=== PATIENT | male | born 1945 | race Asian ===

== ENCOUNTER 2020-02-29 17:53 | Inpatient (IN) | payer MEDICARE ==
[~2020-02-29] VITALS: Ht 170.2 cm; Wt 78.7 kg
--- NOTE | 2020-02-29 18:10 | NUR ---
Bib by sheron from urgent care for hypotension (manual b/p of 70, and hypoxemia (room air of 67%). Presented for rlq/right flank pain at 06/15. Also with diarrhea and no appetite x 3 days On arrival 86, 107/67, poc 98% on 4l (given 2l by EMS)
[2020-02-29] MEDS ORDERED: HYDROmorphone 1 MG/ML, 1ML INJ ONE (18:13)
[2020-02-29] MEDS ORDERED: ONDANSETRON 2MG/ML, 2ML ONE (18:13)
[2020-02-29] MEDS ORDERED: ONDANSETRON 2MG/ML, 2ML IVPush ONE (18:30)
[2020-02-29] MEDS ORDERED: SODIUM CHLORIDE 0.9% 1,000ML IVBOLUS ONE ×2 (18:30→19:30)
[2020-02-29] MEDS ORDERED: HYDROmorphone 2 MG/ML, 1ML IVPush PRN (18:30)
[2020-02-29] MEDS ORDERED: SODIUM CHLORIDE FLUSH 10ML SYR IVF ONE (18:30)
--- NOTE | 2020-02-29 18:30 | NUR ---
PATIENT RESTING COMFORTABLY. HOWEVER REPEAT B/P PRESSURIZED PATIENT SAT BOLT UPRIGHT/SCREAMING IN IN PAIN REPORTING MIDDLE MID BACK WITH SHARP PAIN. RUE B/P ROUGHLY 20 POINTS LOWER THAN LUE. PROVIDER TO BEDSIDE. PROVIDER PERFORMED BEDSIDE FAST. TO GO TO CT FOR AAA EVAL IMMEDIATELY
[2020-02-29] MEDS ORDERED: LOSA50TA14 PO (18:32)
[2020-02-29 18:58] LABS: BASOPHILS % (AUTO) 0 % (0-1); EOSINOPHILS % (AUTO) 0 % (1-7); LYMPHOCYTES # (AUTO) 0.87 x10^3/uL (1-3.4); LYMPHOCYTES % (AUTO) 9 % (22-44); MD NO; MEAN CORPUSCULAR HEMOGLOBIN 30.2 pg (27.5-34.5); MEAN CORPUSCULAR HGB CONC 32.8 g/dL (33.2-36.2); MEAN PLATELET VOLUME 7.6 fL (7.4-10.4); MONOCYTES # (AUTO) 0.34 x10^3/uL (0.2-0.8); MONOCYTES % (AUTO) 4 % (2-9); NEUTROPHILS # (AUTO) 8.02 x10^3/uL (1.8-6.8); NEUTROPHILS % (AUTO) 87 % (42-75); PLATELET COUNT 291 x10^3/uL (130-400); RED BLOOD COUNT 2.67 x10^6/uL (4.38-5.82); RED CELL DISTRIBUTION WIDTH 18.4 % (9.4-14.8)
[2020-02-29] MEDS ORDERED: NOREPINEPHRINE 8 MG in SODIUM CHLORIDE 0.9% 242 ML IV PRN (19:00)
--- NOTE | 2020-02-29 19:07 | NUR ---
GEN SURG PAGED.
[2020-02-29] MEDS ORDERED: OMNIPAQUE 350 MG/ML, 100ML BOTTLE ONE (19:08)
--- NOTE | 2020-02-29 19:10 | NUR ---
RECEIVED REPORT FROM MEÑO SERRANO. ASSUMING CARE AT THIS TIME. PT RESTING COMFORTABLY ON GURNEY. 3RD LITER NS INFUSING. MEÑO SERRANO ESTABLISHING SECOND IV AT THIS TIME. FAMILY AT BEDSIDE.
[2020-02-29 19:11] LABS: ALANINE AMINOTRANSFERASE 207 U/L (12-78); ALBUMIN 2.1 g/dL (3.4-5.0); ANION GAP 9 mmol/L (5-15); CALCIUM 7.7 mg/dL (8.5-10.1); CHLORIDE 111 mmol/L (98-107)
[2020-02-29 19:13] LABS: ALKALINE PHOSPHATASE 111 U/L (45-117); BILIRUBIN,TOTAL 0.6 mg/dL (0.2-1.0); TOTAL PROTEIN 6.1 g/dL (6.4-8.2)
--- NOTE | 2020-02-29 19:20 | NUR ---
Second piv placed to right arm Report to Sarai SERRANO
--- NOTE | 2020-02-29 19:59 | NUR ---
MD AT BEDSIDE TO UPDATE PT AND FAMILY ON POC AND TEST RESULTS.
--- NOTE | 2020-02-29 20:12 | NUR ---
PT PROVIDED URINE SAMPLE. UA COLLECTED AND SENT TO LAB.
[2020-02-29] MEDS ORDERED: MORPHINE SULFATE 4 MG/ML, 1ML ONE (20:14)
--- NOTE | 2020-02-29 20:19 | NUR ---
PT C/O 04/15 PAIN. VERBAL ORDER RECEIVED FOR MORPHINE 2MG IV ONCE.
[2020-02-29] MEDS ORDERED: MORPHINE SULFATE 4 MG/ML, 1ML IVPush PRN (20:30)
[2020-02-29 20:41] LABS: MICROSCOPIC INDICATED
[2020-02-29] MEDS ORDERED: CEFTRIAXONE PMX 1GM/50ML 50 ML ONE (21:17)
[2020-02-29] MEDS ORDERED: CEFTRIAXONE PMX 1GM/50ML 50 ML IVPB ONE (21:30)
--- NOTE | 2020-02-29 21:51 | NUR ---
SECOND SET BLOOD CULTURE COLLECTED PRIOR TO ABX ADMIN.
--- NOTE | 2020-02-29 21:52 | NUR ---
REPORT GIVEN TO DELTA SERRANO
[2020-02-29] MEDS ORDERED: BISACODYL 10 MG SUPP PR PRN (22:00)
[2020-02-29] MEDS ORDERED: ACETAMINOPHEN 325 MG TABLET PO PRN (22:00)
[2020-02-29] MEDS ORDERED: ONDANSETRON 2MG/ML, 2ML IVPush PRN (22:00)
[2020-02-29] MEDS: CEFTRIAXONE PMX 1GM/50ML 50 ML IV SCH (22:00)
[2020-02-29 22:41] VITALS: BP 94/59
[2020-02-29] MEDS: LACTATED RINGERS 1,000 ML IV SCH (22:41)
[2020-03-01] VITALS (11 sets, daily range): BP systolic 83–119; BP diastolic 44–75
[2020-03-01] MEDS ORDERED: TAMS-11 PO (00:44)
[2020-03-01] MEDS: LACTATED RINGERS 1,000 ML IV SCH (05:51)
[2020-03-01 06:18] LABS: MEAN CORPUSCULAR HEMOGLOBIN 30.3 pg (27.5-34.5); MEAN CORPUSCULAR HGB CONC 32.3 g/dL (33.2-36.2); MEAN CORPUSCULAR VOLUME 93.6 fL (81-97); MEAN PLATELET VOLUME 8.1 fL (7.4-10.4); PLATELET COUNT 244 x10^3/uL (130-400); RED BLOOD COUNT 2.39 x10^6/uL (4.38-5.82); RED CELL DISTRIBUTION WIDTH 19.3 % (9.4-14.8)
[2020-03-01] MEDS ORDERED: SODIUM CHLORIDE 0.9% 1,000ML IVBOLUS ONE ×2 (07:00→12:30)
[2020-03-01 07:26] LABS: BASOPHILS # (AUTO) 0.02 x10^3/uL (0-0.1); BASOPHILS % (AUTO) 0 % (0-1); EOSINOPHILS % (AUTO) 0 % (1-7); LYMPHOCYTES # (AUTO) 1.09 x10^3/uL (1-3.4); LYMPHOCYTES % (AUTO) 11 % (22-44); MD SCAN; MONOCYTES # (AUTO) 0.65 x10^3/uL (0.2-0.8); MONOCYTES % (AUTO) 7 % (2-9); NEUTROPHILS # (AUTO) 7.81 x10^3/uL (1.8-6.8); NEUTROPHILS % (AUTO) 82 % (42-75)
[2020-03-01 08:25] LABS: ALANINE AMINOTRANSFERASE 328 U/L (12-78); ALBUMIN 2.2 g/dL (3.4-5.0); ANION GAP 7 mmol/L (5-15); CALCIUM 7.9 mg/dL (8.5-10.1); CHLORIDE 112 mmol/L (98-107); CREATININE 2.07 mg/dL (0.7-1.3)
[2020-03-01 08:28] LABS: ALKALINE PHOSPHATASE 118 U/L (45-117); BILIRUBIN,TOTAL 0.4 mg/dL (0.2-1.0); TOTAL PROTEIN 6.4 g/dL (6.4-8.2)
[2020-03-01] MEDS ORDERED: SODIUM CHLORIDE 0.9%, 500ML IVBOLUS ONE (12:30)
[2020-03-01] MEDS: morphine SULFATE 10 MG/ML, 1ML IVPush PRN (15:53)
[2020-03-01] MEDS: CEFTRIAXONE PMX 1GM/50ML 50 ML IV SCH (22:02)
[2020-03-02 01:21] VITALS: BP 123/72
[2020-03-02 06:16] VITALS: BP 143/80
[2020-03-02] MEDS ORDERED: TAMSULOSIN 0.4 MG CAP.ER.24H ONE (07:25)
[2020-03-02] MEDS: TAMSULOSIN 0.4 MG CAP.ER.24H PO SCH (07:28)
[2020-03-02 08:24] VITALS: BP 122/73
[2020-03-02 13:00] VITALS: BP_SYST 124; BP_SYST 144; BP_SYST 160; BP_DIAS 59; BP_DIAS 78; BP_DIAS 82
[2020-03-02] MEDS: morphine SULFATE 10 MG/ML, 1ML IVPush PRN ×2 (18:25→22:20)
[2020-03-02 19:30] VITALS: BP 137/69
[2020-03-02 19:30] LABS: CLOSTRIDIUM DIFFICILE ANTIGEN NEGATIVE; CLOSTRIDIUM DIFFICILE TOXIN NEGATIVE (Negative)
[2020-03-02] MEDS: CEFTRIAXONE PMX 1GM/50ML 50 ML IV SCH (22:20)
[2020-03-03] VITALS (13 sets, daily range): BP systolic 120–152; BP diastolic 75–88
[2020-03-03] MEDS: morphine SULFATE 10 MG/ML, 1ML IVPush PRN ×5 (01:19→21:07)
[2020-03-03] MEDS: TAMSULOSIN 0.4 MG CAP.ER.24H PO SCH (07:43)
[2020-03-03] MEDS ORDERED: SODIUM CHLORIDE 0.9% 1,000 ML IV SCH (09:00)
[2020-03-03 09:10] LABS: ALBUMIN 2.6 g/dL (3.4-5.0); ANION GAP 8 mmol/L (5-15); CALCIUM 8.6 mg/dL (8.5-10.1); CHLORIDE 114 mmol/L (98-107)
[2020-03-03 09:21] LABS: MEAN CORPUSCULAR HEMOGLOBIN 30.5 pg (27.5-34.5); MEAN CORPUSCULAR HGB CONC 31.9 g/dL (33.2-36.2); MEAN CORPUSCULAR VOLUME 95.7 fL (81-97); MEAN PLATELET VOLUME 7.3 fL (7.4-10.4); PLATELET COUNT 288 x10^3/uL (130-400); RED CELL DISTRIBUTION WIDTH 19.4 % (9.4-14.8)
[2020-03-03 09:23] LABS: BASOPHILS # (AUTO) 0.02 x10^3/uL (0-0.1); BASOPHILS % (AUTO) 0 % (0-1); EOSINOPHILS # (AUTO) 0.01 x10^3/uL (0-0.4); EOSINOPHILS % (AUTO) 0 % (1-7); LYMPHOCYTES # (AUTO) 0.82 x10^3/uL (1-3.4); LYMPHOCYTES % (AUTO) 6 % (22-44); MD MORPH REVIEW ONLY; MONOCYTES # (AUTO) 1.25 x10^3/uL (0.2-0.8); MONOCYTES % (AUTO) 9 % (2-9); NEUTROPHILS % (AUTO) 85 % (42-75)
[2020-03-03 09:25] LABS: ALANINE AMINOTRANSFERASE 1355 U/L (12-78); ALKALINE PHOSPHATASE 260 U/L (45-117); BILIRUBIN,TOTAL 0.9 mg/dL (0.2-1.0); CREATININE 2.13 mg/dL (0.7-1.3); TOTAL PROTEIN 7.5 g/dL (6.4-8.2)
[2020-03-03 09:41] LABS: <PLATELET ESTIMATE> ADEQUATE; <PLT MORPHOLOGY> NORMAL PLT MORPH; ANISOCYTOSIS 1+; HYPOCHROMIA 1+; POLYCHROMASIA 1+; TARGET CELLS 1+
[2020-03-03 10:24] LABS: INTERNATIONAL NORMALIZED RATIO 1.1 (0.93-1.1); PROTHROMBIN TIME 11.7 Seconds (9.6-11.5)
[2020-03-03] MEDS ORDERED: SODIUM CHLORIDE 0.9% 1,800 ML IV SCH (10:30)
[2020-03-03] MEDS: VANCOMYCIN PER PHARMACY MC SCH (10:30)
[2020-03-03] MEDS: PHENAZOPYRIDINE 200 MG TABLET PO SCH ×3 (10:51→21:06)
[2020-03-03] MEDS ORDERED: PHARMACOKINETIC MONITORING MC PRN (11:00)
[2020-03-03] MEDS ORDERED: PHARMACOKINETIC CONSULTATION MC ONE (11:00)
[2020-03-03] MEDS: VANCOMYCIN 1,600 MG in SODIUM CHLORIDE 0.9% 250 ML IV SCH (11:04)
[2020-03-03] MEDS ORDERED: FUROSEMIDE 40 MG/4 ML ONE (13:12)
[2020-03-03] MEDS ORDERED: FUROSEMIDE 40 MG/4 ML IV ONE (13:30)
[2020-03-03] MEDS: OXYcodone IR 5MG TABLET PO PRN ×2 (15:41→19:42)
[2020-03-03 16:46] LABS: OCCULT BLOOD NEGATIVE (NEGATIVE)
[2020-03-03] MEDS ORDERED: MORPHINE SULFATE 4 MG/ML, 1ML ONE (21:01)
[2020-03-04] MEDS: OXYcodone IR 5MG TABLET PO PRN ×2 (00:58→09:26)
[2020-03-04 02:45] VITALS: BP 125/78
[2020-03-04] MEDS ORDERED: MORPHINE SULFATE 4 MG/ML, 1ML ONE (02:48)
[2020-03-04] MEDS: morphine SULFATE 10 MG/ML, 1ML IVPush PRN (02:52)
[2020-03-04 06:45] VITALS: BP 130/77
[2020-03-04] MEDS ORDERED: FUROSEMIDE 40 MG/4 ML IV ONE (09:00)
[2020-03-04] MEDS: VANCOMYCIN PER PHARMACY MC SCH (09:00)
[2020-03-04] MEDS: IRON SUCROSE COMPLEX 100MG/5ML IV SCH (09:26)
[2020-03-04] MEDS: PHENAZOPYRIDINE 200 MG TABLET PO SCH ×3 (09:26→21:43)
[2020-03-04] MEDS: TAMSULOSIN 0.4 MG CAP.ER.24H PO SCH (09:26)
[2020-03-04 09:48] LABS: MEAN CORPUSCULAR HEMOGLOBIN 30.7 pg (27.5-34.5); MEAN CORPUSCULAR HGB CONC 33.3 g/dL (33.2-36.2); MEAN CORPUSCULAR VOLUME 92.1 fL (81-97); MEAN PLATELET VOLUME 7.8 fL (7.4-10.4); PLATELET COUNT 287 x10^3/uL (130-400); RED BLOOD COUNT 3.07 x10^6/uL (4.38-5.82)
[2020-03-04 09:55] LABS: ALBUMIN 2.6 g/dL (3.4-5.0); ANION GAP 9 mmol/L (5-15); CALCIUM 8.3 mg/dL (8.5-10.1); CHLORIDE 110 mmol/L (98-107); CREATININE 2.18 mg/dL (0.7-1.3)
[2020-03-04 10:09] LABS: BASOPHILS % (AUTO) 0 % (0-1); EOSINOPHILS # (AUTO) 0.24 x10^3/uL (0-0.4); EOSINOPHILS % (AUTO) 2 % (1-7); LYMPHOCYTES # (AUTO) 0.68 x10^3/uL (1-3.4); LYMPHOCYTES % (AUTO) 6 % (22-44); MD SCAN; MONOCYTES # (AUTO) 0.98 x10^3/uL (0.2-0.8); MONOCYTES % (AUTO) 8 % (2-9); NEUTROPHILS # (AUTO) 9.99 x10^3/uL (1.8-6.8); NEUTROPHILS % (AUTO) 84 % (42-75)
[2020-03-04 10:11] LABS: ALANINE AMINOTRANSFERASE 1063 U/L (12-78); ALKALINE PHOSPHATASE 232 U/L (45-117); BILIRUBIN,TOTAL 1.2 mg/dL (0.2-1.0); TOTAL PROTEIN 7.7 g/dL (6.4-8.2)
[2020-03-04] MEDS: VANCOMYCIN 1,600 MG in SODIUM CHLORIDE 0.9% 250 ML IV SCH (11:32)
[2020-03-04 13:19] VITALS: BP 131/80
[2020-03-04 18:56] VITALS: BP 144/82
[2020-03-05 02:21] VITALS: BP 131/73
[2020-03-05] MEDS: morphine SULFATE 10 MG/ML, 1ML IVPush PRN ×2 (02:58→21:57)
[2020-03-05] MEDS: OXYcodone IR 5MG TABLET PO PRN ×3 (04:41→19:47)
[2020-03-05 06:10] LABS: MEAN CORPUSCULAR HEMOGLOBIN 30.2 pg (27.5-34.5); MEAN CORPUSCULAR HGB CONC 32.6 g/dL (33.2-36.2); MEAN CORPUSCULAR VOLUME 92.5 fL (81-97); MEAN PLATELET VOLUME 7.4 fL (7.4-10.4); PLATELET COUNT 267 x10^3/uL (130-400); RED BLOOD COUNT 3.07 x10^6/uL (4.38-5.82); RED CELL DISTRIBUTION WIDTH 19.2 % (9.4-14.8)
[2020-03-05 06:21] LABS: ALANINE AMINOTRANSFERASE 784 U/L (12-78); ALBUMIN 2.2 g/dL (3.4-5.0); ANION GAP 6 mmol/L (5-15); CALCIUM 8.5 mg/dL (8.5-10.1); CHLORIDE 112 mmol/L (98-107)
[2020-03-05 06:23] VITALS: BP 128/76
[2020-03-05 06:29] LABS: ALKALINE PHOSPHATASE 202 U/L (45-117); CREATININE 1.76 mg/dL (0.7-1.3); TOTAL PROTEIN 7.1 g/dL (6.4-8.2)
[2020-03-05 06:42] LABS: BASOPHILS # (AUTO) 0.01 x10^3/uL (0-0.1); BASOPHILS % (AUTO) 0 % (0-1); EOSINOPHILS # (AUTO) 0.25 x10^3/uL (0-0.4); EOSINOPHILS % (AUTO) 2 % (1-7); LYMPHOCYTES # (AUTO) 0.58 x10^3/uL (1-3.4); LYMPHOCYTES % (AUTO) 5 % (22-44); MD SCAN; MONOCYTES % (AUTO) 5 % (2-9); NEUTROPHILS # (AUTO) 9.86 x10^3/uL (1.8-6.8); NEUTROPHILS % (AUTO) 88 % (42-75)
[2020-03-05] MEDS: VANCOMYCIN PER PHARMACY MC SCH (09:00)
[2020-03-05] MEDS: TAMSULOSIN 0.4 MG CAP.ER.24H PO SCH (09:30)
[2020-03-05] MEDS: IRON SUCROSE COMPLEX 100MG/5ML IV SCH (09:30)
[2020-03-05 09:49] LABS: CREATININE 1.72 mg/dL (0.7-1.3)
[2020-03-05] MEDS: VANCOMYCIN 1,600 MG in SODIUM CHLORIDE 0.9% 250 ML IV SCH ×2 (12:32→18:30)
[2020-03-05 13:03] VITALS: BP 135/79
[2020-03-05 18:50] VITALS: BP 130/70
[2020-03-05] MEDS ORDERED: MORPHINE SULFATE 4 MG/ML, 1ML ONE (21:48)
[2020-03-06 00:35] VITALS: BP 150/82
[2020-03-06] MEDS ORDERED: MORPHINE SULFATE 4 MG/ML, 1ML ONE (01:24)
[2020-03-06] MEDS: morphine SULFATE 10 MG/ML, 1ML IVPush PRN ×6 (01:28→23:56)
[2020-03-06] MEDS: OXYcodone IR 5MG TABLET PO PRN ×3 (03:04→18:44)
[2020-03-06] MEDS: VANCOMYCIN PER PHARMACY MC SCH (08:12)
[2020-03-06] MEDS: IRON SUCROSE COMPLEX 100MG/5ML IV SCH (08:41)
[2020-03-06] MEDS: TAMSULOSIN 0.4 MG CAP.ER.24H PO SCH (08:43)
[2020-03-06 09:28] LABS: CREATININE 1.38 mg/dL (0.7-1.3)
[2020-03-06 09:43] LABS: ALANINE AMINOTRANSFERASE 631 U/L (12-78); ALBUMIN 2.4 g/dL (3.4-5.0); ANION GAP 3 mmol/L (5-15); CALCIUM 8.9 mg/dL (8.5-10.1); CHLORIDE 113 mmol/L (98-107)
[2020-03-06 09:45] LABS: ALKALINE PHOSPHATASE 211 U/L (45-117); BILIRUBIN,TOTAL 1.5 mg/dL (0.2-1.0); TOTAL PROTEIN 7.6 g/dL (6.4-8.2)
[2020-03-06 09:48] LABS: CREATININE 1.38 mg/dL (0.7-1.3)
[2020-03-06 09:58] VITALS: BP 162/89
[2020-03-06 13:22] VITALS: BP 160/82
[2020-03-06] MEDS: FUROSEMIDE 20 MG/2 ML IV SCH (18:44)
[2020-03-06] MEDS: VANCOMYCIN 1,600 MG in SODIUM CHLORIDE 0.9% 250 ML IV SCH (18:44)
[2020-03-06 19:29] VITALS: BP 127/67
[2020-03-06] MEDS ORDERED: LORazepam 0.5MG TABLET PO ONE (23:00)
[2020-03-07 00:03] VITALS: BP 138/59
[2020-03-07] MEDS: morphine SULFATE 10 MG/ML, 1ML IVPush PRN ×4 (04:04→20:25)
[2020-03-07 06:01] LABS: BASOPHILS # (AUTO) 0.02 x10^3/uL (0-0.1); BASOPHILS % (AUTO) 0 % (0-1); EOSINOPHILS # (AUTO) 0.26 x10^3/uL (0-0.4); EOSINOPHILS % (AUTO) 2 % (1-7); LYMPHOCYTES # (AUTO) 0.82 x10^3/uL (1-3.4); LYMPHOCYTES % (AUTO) 7 % (22-44); MD NO; MEAN CORPUSCULAR HEMOGLOBIN 30.7 pg (27.5-34.5); MEAN CORPUSCULAR HGB CONC 32.6 g/dL (33.2-36.2); MEAN CORPUSCULAR VOLUME 94.3 fL (81-97); MEAN PLATELET VOLUME 7.4 fL (7.4-10.4); MONOCYTES # (AUTO) 0.89 x10^3/uL (0.2-0.8); MONOCYTES % (AUTO) 8 % (2-9); NEUTROPHILS # (AUTO) 9.44 x10^3/uL (1.8-6.8); NEUTROPHILS % (AUTO) 83 % (42-75); PLATELET COUNT 295 x10^3/uL (130-400); RED BLOOD COUNT 3.31 x10^6/uL (4.38-5.82); RED CELL DISTRIBUTION WIDTH 19.9 % (9.4-14.8)
[2020-03-07 06:08] LABS: CHLORIDE 113 mmol/L (98-107)
[2020-03-07 06:17] LABS: ALANINE AMINOTRANSFERASE 485 U/L (12-78); ALBUMIN 2.1 g/dL (3.4-5.0); ALKALINE PHOSPHATASE 193 U/L (45-117); ANION GAP 7 mmol/L (5-15); BILIRUBIN,TOTAL 1.4 mg/dL (0.2-1.0); CALCIUM 8.4 mg/dL (8.5-10.1); CREATININE 1.38 mg/dL (0.7-1.3); TOTAL PROTEIN 6.9 g/dL (6.4-8.2)
[2020-03-07] MEDS: IRON SUCROSE COMPLEX 100MG/5ML IV SCH (09:46)
[2020-03-07] MEDS: VANCOMYCIN PER PHARMACY MC SCH (09:46)
[2020-03-07] MEDS: FUROSEMIDE 20 MG/2 ML IV SCH ×2 (09:46→15:35)
[2020-03-07] MEDS: TAMSULOSIN 0.4 MG CAP.ER.24H PO SCH (09:46)
[2020-03-07 10:00] VITALS: BP 155/87
[2020-03-07] MEDS ORDERED: OPIUM/BELLADONNA SUPP.RECT 16.2-60 MG PR PRN (14:00)
[2020-03-07 14:20] VITALS: BP 148/81
[2020-03-07 15:34] LABS: OCCULT BLOOD POSITIVE (NEGATIVE)
[2020-03-07] MEDS: PHENAZOPYRIDINE 200 MG TABLET PO PRN (15:35)
[2020-03-07] MEDS: OXYcodone IR 5MG TABLET PO PRN (16:22)
[2020-03-07] MEDS: VANCOMYCIN 1,200 MG in SODIUM CHLORIDE 0.9% 250 ML IV SCH (18:27)
[2020-03-07 20:24] VITALS: BP 116/42
[2020-03-08 00:22] VITALS: BP 125/65
[2020-03-08] MEDS: PHENAZOPYRIDINE 200 MG TABLET PO PRN ×3 (00:24→16:46)
[2020-03-08] MEDS: morphine SULFATE 10 MG/ML, 1ML IVPush PRN (00:24)
[2020-03-08] MEDS: OXYcodone IR 5MG TABLET PO PRN ×2 (01:37→22:18)
[2020-03-08 05:07] LABS: BASOPHILS % (AUTO) 0 % (0-1); EOSINOPHILS # (AUTO) 0.31 x10^3/uL (0-0.4); EOSINOPHILS % (AUTO) 3 % (1-7); LYMPHOCYTES # (AUTO) 0.73 x10^3/uL (1-3.4); LYMPHOCYTES % (AUTO) 7 % (22-44); MD NO; MEAN CORPUSCULAR HEMOGLOBIN 30.2 pg (27.5-34.5); MEAN CORPUSCULAR HGB CONC 32.2 g/dL (33.2-36.2); MEAN CORPUSCULAR VOLUME 94.1 fL (81-97); MEAN PLATELET VOLUME 7.9 fL (7.4-10.4); MONOCYTES # (AUTO) 0.81 x10^3/uL (0.2-0.8); MONOCYTES % (AUTO) 7 % (2-9); NEUTROPHILS # (AUTO) 9.43 x10^3/uL (1.8-6.8); NEUTROPHILS % (AUTO) 84 % (42-75); PLATELET COUNT 307 x10^3/uL (130-400); RED CELL DISTRIBUTION WIDTH 19.4 % (9.4-14.8)
[2020-03-08 05:11] LABS: CHLORIDE 110 mmol/L (98-107)
[2020-03-08 05:17] LABS: ALANINE AMINOTRANSFERASE 410 U/L (12-78); ALBUMIN 2.2 g/dL (3.4-5.0); ALKALINE PHOSPHATASE 194 U/L (45-117); ANION GAP 5 mmol/L (5-15); BILIRUBIN,TOTAL 1.5 mg/dL (0.2-1.0); CALCIUM 8.6 mg/dL (8.5-10.1); TOTAL PROTEIN 7.1 g/dL (6.4-8.2)
[2020-03-08] MEDS: IRON SUCROSE COMPLEX 100MG/5ML IV SCH (08:17)
[2020-03-08] MEDS: TAMSULOSIN 0.4 MG CAP.ER.24H PO SCH (08:17)
[2020-03-08] MEDS: VANCOMYCIN PER PHARMACY MC SCH (08:17)
[2020-03-08] MEDS: FUROSEMIDE 20 MG/2 ML IV SCH ×2 (08:17→16:46)
[2020-03-08 08:40] VITALS: BP 135/69
[2020-03-08 14:22] VITALS: BP 128/62
[2020-03-08] MEDS ORDERED: ONDANSETRON ODT 4 MG PO PRN (17:00)
[2020-03-08] MEDS: VANCOMYCIN 1,200 MG in SODIUM CHLORIDE 0.9% 250 ML IV SCH (18:12)
[2020-03-08 18:30] VITALS: BP 128/66
[2020-03-08] MEDS: GUAIFENESIN/DM 100-10MG, 5ML UDC PO PRN (22:18)
[2020-03-09 00:11] VITALS: BP 124/51
[2020-03-09] MEDS: GUAIFENESIN/DM 100-10MG, 5ML UDC PO PRN ×4 (04:06→22:54)
[2020-03-09 06:25] LABS: BASOPHILS # (AUTO) 0.05 x10^3/uL (0-0.1); BASOPHILS % (AUTO) 1 % (0-1); EOSINOPHILS # (AUTO) 0.21 x10^3/uL (0-0.4); EOSINOPHILS % (AUTO) 2 % (1-7); LYMPHOCYTES # (AUTO) 0.77 x10^3/uL (1-3.4); LYMPHOCYTES % (AUTO) 8 % (22-44); MD NO; MEAN CORPUSCULAR HEMOGLOBIN 30.6 pg (27.5-34.5); MEAN CORPUSCULAR HGB CONC 32.1 g/dL (33.2-36.2); MEAN CORPUSCULAR VOLUME 95.3 fL (81-97); MONOCYTES # (AUTO) 0.81 x10^3/uL (0.2-0.8); MONOCYTES % (AUTO) 8 % (2-9); NEUTROPHILS # (AUTO) 8.23 x10^3/uL (1.8-6.8); NEUTROPHILS % (AUTO) 82 % (42-75); PLATELET COUNT 309 x10^3/uL (130-400); RED BLOOD COUNT 3.13 x10^6/uL (4.38-5.82); RED CELL DISTRIBUTION WIDTH 20.4 % (9.4-14.8)
[2020-03-09 06:35] LABS: ALANINE AMINOTRANSFERASE 329 U/L (12-78); ANION GAP 7 mmol/L (5-15); CALCIUM 8.3 mg/dL (8.5-10.1); CHLORIDE 111 mmol/L (98-107)
[2020-03-09 06:36] VITALS: BP 153/89
[2020-03-09 06:38] LABS: ALKALINE PHOSPHATASE 201 U/L (45-117); BILIRUBIN,TOTAL 1.6 mg/dL (0.2-1.0); TOTAL PROTEIN 6.8 g/dL (6.4-8.2)
[2020-03-09] MEDS: FUROSEMIDE 20 MG/2 ML IV SCH ×2 (08:06→17:34)
[2020-03-09] MEDS: TAMSULOSIN 0.4 MG CAP.ER.24H PO SCH (08:06)
[2020-03-09 12:15] VITALS: BP 129/76
[2020-03-09] MEDS: PHENAZOPYRIDINE 200 MG TABLET PO PRN (13:07)
[2020-03-09] MEDS: VANCOMYCIN PER PHARMACY MC SCH (17:00)
[2020-03-09] MEDS: POTASSIUM CHLORIDE 20 MEQ TAB.ER.PRT PO SCH (19:53)
[2020-03-09] MEDS: VANCOMYCIN 1,200 MG in SODIUM CHLORIDE 0.9% 250 ML IV SCH (19:53)
[2020-03-09 20:23] VITALS: BP 140/79
[2020-03-10 01:57] VITALS: BP 141/77
[2020-03-10] MEDS: GUAIFENESIN/DM 100-10MG, 5ML UDC PO PRN ×2 (04:16→15:22)
[2020-03-10 06:12] LABS: MEAN CORPUSCULAR HGB CONC 32.7 g/dL (33.2-36.2); MEAN PLATELET VOLUME 7.8 fL (7.4-10.4); PLATELET COUNT 343 x10^3/uL (130-400); RED BLOOD COUNT 3.16 x10^6/uL (4.38-5.82); RED CELL DISTRIBUTION WIDTH 20.5 % (9.4-14.8)
[2020-03-10 06:27] LABS: CALCIUM 8.4 mg/dL (8.5-10.1); CHLORIDE 109 mmol/L (98-107)
[2020-03-10 06:30] LABS: ANISOCYTOSIS 2+; BASOPHILS # (AUTO) 0.07 x10^3/uL (0-0.1); BASOPHILS % (AUTO) 1 % (0-1); EOSINOPHILS # (AUTO) 0.22 x10^3/uL (0-0.4); EOSINOPHILS % (AUTO) 2 % (1-7); HYPOCHROMIA 1+; LYMPHOCYTES # (AUTO) 0.83 x10^3/uL (1-3.4); LYMPHOCYTES % (AUTO) 9 % (22-44); MD MORPH REVIEW ONLY; MICROCYTOSIS 1+; MONOCYTES # (AUTO) 0.52 x10^3/uL (0.2-0.8); MONOCYTES % (AUTO) 5 % (2-9); NEUTROPHILS # (AUTO) 7.93 x10^3/uL (1.8-6.8); NEUTROPHILS % (AUTO) 83 % (42-75); POLYCHROMASIA 1+; TARGET CELLS 1+
[2020-03-10 06:31] LABS: <PLATELET ESTIMATE> ADEQUATE; <PLT MORPHOLOGY> NORMAL PLT MORPH
[2020-03-10 06:32] LABS: ALANINE AMINOTRANSFERASE 272 U/L (12-78); ALKALINE PHOSPHATASE 201 U/L (45-117); ANION GAP 3 mmol/L (5-15); BILIRUBIN,TOTAL 1.4 mg/dL (0.2-1.0); CREATININE 1.07 mg/dL (0.7-1.3); TOTAL PROTEIN 6.6 g/dL (6.4-8.2)
[2020-03-10] MEDS ORDERED: OXYcodone IR 5MG TABLET PO PRN (08:00)
[2020-03-10] MEDS: TAMSULOSIN 0.4 MG CAP.ER.24H PO SCH (08:24)
[2020-03-10] MEDS: CARVEDILOL 3.125 MG TABLET PO SCH ×2 (08:24→17:54)
[2020-03-10] MEDS: FUROSEMIDE 40 MG TABLET PO SCH (08:24)
[2020-03-10] MEDS: POTASSIUM CHLORIDE 20 MEQ TAB.ER.PRT PO SCH ×2 (08:24→21:11)
[2020-03-10 08:41] VITALS: BP 139/78
[2020-03-10] MEDS ORDERED: morphine SULFATE 10 MG/ML, 1ML IVPush PRN (10:00)
[2020-03-10 13:14] VITALS: BP 126/72
[2020-03-10 20:57] VITALS: BP 123/65
[2020-03-10] MEDS: PHENAZOPYRIDINE 200 MG TABLET PO PRN (22:45)
[2020-03-11 02:17] VITALS: BP 130/80
[2020-03-11] MEDS: CARVEDILOL 3.125 MG TABLET PO SCH (06:00)
[2020-03-11 06:20] LABS: % IRON SATURATION 19 % (20-55); IRON LEVEL 56 mcg/dL (65-175); TOTAL IRON BINDING CAPACITY 288 mcg/dL (250-450)
[2020-03-11] MEDS ORDERED: POTASSIUM CHLORIDE 20 MEQ TAB.ER.PRT PO ONE (07:30)
[2020-03-11] MEDS ORDERED: FERROUS SULFATE 325 MG TABLET PO SCH (07:30)
[2020-03-11] MEDS: POTASSIUM CHLORIDE 20 MEQ TAB.ER.PRT PO SCH (09:15)
[2020-03-11] MEDS: FUROSEMIDE 40 MG TABLET PO SCH (09:15)
[2020-03-11] MEDS: TAMSULOSIN 0.4 MG CAP.ER.24H PO SCH (09:15)
[2020-03-11] MEDS: LACTOBACILLUS CHEW TABLET PO SCH ×2 (09:15→16:29)
[2020-03-11 09:35] VITALS: BP 108/78
[2020-03-11] MEDS ORDERED: ACID1TAB7 PO (13:29)
[2020-03-11] MEDS ORDERED: POTA20TA6 PO (13:29)
[2020-03-11] MEDS ORDERED: FERR-51 PO (13:29)
[2020-03-11] MEDS ORDERED: OXYC5TAB3 PO (13:29)
[2020-03-11] MEDS ORDERED: CARV3.1212 PO (13:29)
[2020-03-11] MEDS ORDERED: BISA10SU4 PR (13:29)
[2020-03-11] MEDS ORDERED: PHEN-583 PO (13:29)
[2020-03-11] MEDS ORDERED: OPIU1SUP PR (13:29)
[2020-03-11] MEDS ORDERED: FURO40TA6 PO (13:29)
[2020-03-11] MEDS ORDERED: SENN8.6T87 PO (13:33)
[2020-03-11 14:00] VITALS: BP 130/73
== END 2020-03-11 17:05 | disposition home or self-care (01) | DRG 871 ==
LOC: ED 19:52 → EDIP 20:01 → 3N 22:19 → 3WST 03-02 06:03 → DCLOUNGE 03-11 16:40
PROVIDERS: ADMIT Hospitalist; ATTEND Internal Medicine
PROC: 30233N1 Transfusion of Nonautologous Red Blood Cells into Peripheral Vein, Percutaneous Approach (ICD-10-PCS; 2020-03-03)
PROC: 0T9B70Z Drainage of Bladder with Drainage Device, Via Natural or Artificial Opening (ICD-10-PCS; principal; 2020-03-07)
DX: A41.81 Sepsis due to Enterococcus (principal); E43 Unspecified severe protein-calorie malnutrition; G93.41 Metabolic encephalopathy; I50.21 Acute systolic (congestive) heart failure; J96.01 Acute respiratory failure with hypoxia; K72.00 Acute and subacute hepatic failure without coma; N17.0 Acute kidney failure with tubular necrosis; K85.90 Acute pancreatitis without necrosis or infection, unspecified; C78.00 Secondary malignant neoplasm of unspecified lung; D62 Acute posthemorrhagic anemia; R18.8 Other ascites; C22.0 Liver cell carcinoma; J98.11 Atelectasis; E87.2 Acidosis; R65.20 Severe sepsis without septic shock; N30.90 Cystitis, unspecified without hematuria; E87.8 Other disorders of electrolyte and fluid balance, not elsewhere classified; D50.9 Iron deficiency anemia, unspecified; D63.8 Anemia in other chronic diseases classified elsewhere; Z20.828 Contact with and (suspected) exposure to other viral communicable diseases; Z66 Do not resuscitate; R33.8 Other retention of urine; N40.1 Benign prostatic hyperplasia with lower urinary tract symptoms; E87.6 Hypokalemia; N36.8 Other specified disorders of urethra; E78.5 Hyperlipidemia, unspecified; I11.0 Hypertensive heart disease with heart failure; M10.9 Gout, unspecified; Z87.891 Personal history of nicotine dependence; Z85.05 Personal history of malignant neoplasm of liver; Z82.49 Family history of ischemic heart disease and other diseases of the circulatory system; Z79.899 Other long term (current) drug therapy
CPT/HCPCS: 36415; 36430; 71045; 71046; 74174; 80053; 80202; 81001; 82140; 82272; 82565; 82607; 83036; 83540; 83550; 83605; 83690; 85014; 85018; 85025; 85610; 86850; 86900; 86923; 87040; 87077; 87086; 87186; 87324; 87635; 93005; 93308; 93321; 93325; 96361; 96374; 96375; 99285; G0378; J0696; J1170; J1756; J1940; J2405; J3370; Q9967; J2270; J7030; J7050; J7120; P9016